=== PATIENT | female | born 1950 | race African-American/Black ===

== ENCOUNTER → 2017-05-20 | Outpatient (CLI) | payer MEDICARE, MEDICAID ==
[~2017-05-20] MED LIST: LEVOTHYROXINE
== END | disposition home or self-care (01) ==
LOC: MAMMO 09:43
PROVIDERS: ATTEND Specialist
DX: Z12.31 Encounter for screening mammogram for malignant neoplasm of breast (principal)
CPT/HCPCS: G0202

== ENCOUNTER 2019-05-30 06:27 | Day surgery (SDC) | payer MEDICARE, MEDICAID ==
[~2019-05-30] VITALS: Ht 175.3 cm; Wt 95.7 kg
[2019-05-30] MEDS ORDERED: BACITRACIN 50,000 UNITS/VIAL ONE (06:46)
[2019-05-30] MEDS ORDERED: BUPIVACAINE HCL 0.5% (5MG/ML) 50ML ONE (06:46)
[2019-05-30] MEDS ORDERED: BUPIVACAINE HCL/EPINEPHRINE 0.5%/0.0005 30ML ONE (06:47)
[2019-05-30] MEDS ORDERED: MIDAZOLAM HCL 2 MG/2 ML VIAL ONE (07:18)
[2019-05-30] MEDS ORDERED: PROPOFOL 200MG/20ML VIAL IV ONE (07:18)
[2019-05-30] MEDS ORDERED: LIDOCAINE HCL/PF 1% 10 MG/ML 5ML VIAL ONE (07:18)
[2019-05-30] MEDS ORDERED: FENTANYL CITRATE/PF 50MCG/ML 2ML VIAL ONE (07:18)
[2019-05-30] MEDS ORDERED: ASPI-1160 PO (07:38)
[2019-05-30] MEDS ORDERED: BACITRACIN 15GM TUBE TOP ONE (08:08)
[2019-05-30 08:32] LABS: CLARITY URINE CLEAR (CLEAR); COLOR URINE YELLOW (YELLOW); KETONES URINE NEGATIVE (NEGATIVE); LEUKOCYTE ESTERASE URINE NEGATIVE (NEGATIVE); NITRITE URINE NEGATIVE (NEGATIVE); OCCULT BLOOD URINE NEGATIVE (NEGATIVE); PH URINE 5.5 (4.5-8.0); PROTEIN URINE 1+ (NEGATIVE); SPECIFIC GRAVITY URINE 1.008 (1.005-1.030); UROBILINOGEN URINE 0.2 E.U./dL (0.2-1.0)
[2019-05-30] MEDS ORDERED: SUCCINYLCHOLINE CHLORIDE 200MG/10ML IV ONE (08:35)
[2019-05-30] MEDS ORDERED: VALS80TA30 PO (09:07)
[2019-05-30] MEDS ORDERED: METO-385 PO (09:07)
[2019-05-30] MEDS ORDERED: NIFE90TA34 PO (09:07)
[2019-05-30] MEDS ORDERED: ATOR10TA69 PO (09:07)
[2019-05-30] MEDS ORDERED: HYDR100T26 PO (09:07)
[2019-05-30] MEDS ORDERED: ONDANSETRON HCL 4MG/2ML INJ IV PRN (09:30)
[2019-05-30] MEDS: KETOROLAC 30MG/ML VIAL IV PRN ×2 (09:34→09:39)
[2019-05-30 09:39] VITALS: BP 163/76
[2019-05-30] MEDS ORDERED: CEFAZOLIN SODIUM 1000MG/VIAL ONE (09:56)
== END 2019-05-30 11:50 | disposition home or self-care (01) ==
LOC: OR 06:27
PROVIDERS: ATTEND Surgery
DX: K62.89 Other specified diseases of anus and rectum (principal); C20 Malignant neoplasm of rectum; I11.9 Hypertensive heart disease without heart failure; E03.9 Hypothyroidism, unspecified; E11.65 Type 2 diabetes mellitus with hyperglycemia; E78.5 Hyperlipidemia, unspecified; Z88.5 Allergy status to narcotic agent; Z90.710 Acquired absence of both cervix and uterus; Z79.899 Other long term (current) drug therapy; Z71.3 Dietary counseling and surveillance; Z79.82 Long term (current) use of aspirin
CPT/HCPCS: 45171; 81003; 82962; 88305; 88331; J0330; J0690; J1885; J2250; J2704; J3010; J3490; J0171

== ENCOUNTER → 2019-07-07 | Day surgery (SDC) | payer MEDICARE, MEDICAID ==
[~2019-07-07] MED LIST changes: +ASPI-1160 PO; +ATOR10TA69 PO; +HYDR100T26 PO; -LEVOTHYROXINE; +LIDOCAINE HCL 1% 20ML VIAL (Pyxis) INJ ONE; +METO-385 PO; +NIFE90TA34 PO; +SODIUM BICARBONATE 4% (2.4MEQ) 5ML VIAL IV ONE; +VALS80TA30 PO
== END | disposition home or self-care (01) ==
LOC: RADANGIO 11:02
PROVIDERS: ATTEND Internal Medicine Hematology & Oncology
DX: C21.1 Malignant neoplasm of anal canal (principal); Z79.82 Long term (current) use of aspirin; Z79.899 Other long term (current) drug therapy; Z88.5 Allergy status to narcotic agent
CPT/HCPCS: 36573; 76937; C1725; J3490

== ENCOUNTER → 2020-08-07 | Outpatient (CLI) | payer MEDICARE, MEDICAID ==
[~2020-08-07] MED LIST changes: +IRBE300T42 PO; +LEVO150T8 PO; -LIDOCAINE HCL 1% 20ML VIAL (Pyxis) INJ ONE; -NIFE90TA34 PO; +NIFE90TA60 PO; +NPH,100V SQ; -SODIUM BICARBONATE 4% (2.4MEQ) 5ML VIAL IV ONE
== END | disposition home or self-care (01) ==
LOC: LAB 11:07
DX: Z01.812 Encounter for preprocedural laboratory examination (principal); Z20.828 Contact with and (suspected) exposure to other viral communicable diseases
CPT/HCPCS: 87426

== ENCOUNTER 2020-08-08 05:27 | Day surgery (SDC) | payer MEDICARE, MEDICAID ==
[~2020-08-08] VITALS: Ht 175.3 cm; Wt 105.2 kg
[~2020-08-08 05:27] MED LIST changes: -IRBE300T42 PO; -LEVO150T8 PO; -NPH,100V SQ
[2020-08-08] MEDS ORDERED: LACTATED RINGERS 1,000 ML IV SCH (06:00)
[2020-08-08] MEDS ORDERED: NPH,100V SQ (06:33)
[2020-08-08] MEDS ORDERED: IRBE300T42 PO (06:33)
[2020-08-08] MEDS ORDERED: LEVO150T8 PO (06:33)
[2020-08-08] MEDS ORDERED: BUPIVACAINE HCL 0.5% (5MG/ML) 50ML ONE (06:37)
[2020-08-08] MEDS ORDERED: LIDOCAINE HCL 1% 20ML VIAL (Pyxis) INJ ONE (06:37)
[2020-08-08] MEDS ORDERED: PROPOFOL 200MG/20ML VIAL IV ONE (08:31)
[2020-08-08] MEDS ORDERED: FENTANYL CITRATE/PF 50MCG/ML 2ML VIAL ONE (08:31)
[2020-08-08] MEDS ORDERED: GLYCOPYRROLATE 0.2 MG/ML 2ML VIAL ONE (08:31)
[2020-08-08] MEDS ORDERED: METOCLOPRAMIDE HCL 10MG/2ML VIAL ONE (08:31)
[2020-08-08] MEDS ORDERED: MIDAZOLAM HCL 2 MG/2 ML VIAL ONE (08:31)
[2020-08-08] MEDS ORDERED: SUCCINYLCHOLINE CHLORIDE 200MG/10ML IV ONE (08:31)
[2020-08-08] MEDS ORDERED: ONDANSETRON HCL 4MG/2ML INJ ONE (08:31)
[2020-08-08] MEDS ORDERED: CEFAZOLIN SODIUM 1000MG/VIAL ONE (08:37)
[2020-08-08] MEDS ORDERED: ONDANSETRON HCL 4MG/2ML INJ IV PRN (08:45)
[2020-08-08] MEDS ORDERED: MORPHINE SULFATE 2 MG/ML CPJ (NOT FOR IM USE) IV PRN (08:45)
[2020-08-08] MEDS ORDERED: MEPERIDINE HCL/PF 25MG/ML CPJ IV PRN ×2 (08:45)
[2020-08-08] MEDS ORDERED: SODIUM CHLORIDE 0.9% 1,000 ML IV ONE (08:45)
[2020-08-08] MEDS ORDERED: HYDROMORPHONE HCL/PF 2MG/ML CPJ IV PRN (08:45)
[2020-08-08] MEDS ORDERED: BACITRACIN 15GM TUBE TOP ONE (08:53)
== END 2020-08-08 11:25 | disposition home or self-care (01) ==
LOC: OR 05:27
PROVIDERS: ATTEND Surgery
DX: K62.89 Other specified diseases of anus and rectum (principal); E11.9 Type 2 diabetes mellitus without complications; I10 Essential (primary) hypertension; E66.01 Morbid (severe) obesity due to excess calories; Z68.34 Body mass index [BMI] 34.0-34.9, adult; Z88.5 Allergy status to narcotic agent; Z79.82 Long term (current) use of aspirin; Z79.4 Long term (current) use of insulin; Z79.899 Other long term (current) drug therapy; Z90.710 Acquired absence of both cervix and uterus; Z98.890 Other specified postprocedural states
CPT/HCPCS: 46922; 82962; 88304; J0330; J0690; J2250; J2405; J2704; J2765; J3010; J3490

== ENCOUNTER 2021-08-19 15:46 | Inpatient (IN) | payer MEDICARE, MEDICAID ==
[~2021-08-19] VITALS: Ht 177.8 cm; Wt 119.4 kg
[~2021-08-19 15:46] MED LIST changes: +IRBE300T42 PO; +LEVO150T8 PO; +NPH,100V SQ; -VALS80TA30 PO
[2021-08-19 17:13] LABS: BASOPHILS % 0.3 % (0.0-2.0); EOSINOPHILS % 0.9 % (0.0-5.0); HEMATOCRIT. 33.9 % (36.0-48.0); HEMOGLOBIN. 11.1 g/dL (12.0-16.0); LYMPHOCYTES % 13.1 % (20.0-50.0); MEAN CORPUSCULAR HEMOGLOBIN 27.3 pg (28.0-32.0); MEAN CORPUSCULAR VOLUME 83.3 fL (81.0-99.0); MEAN PLATELET VOLUME 9.3 fl (7.4-10.4); MONOCYTES % 11.1 % (2.0-8.0); NEUTROPHILS % 74.6 % (40.0-76.0); PLATELET 112 x1000/uL (130-400); RED BLOOD CELL COUNT 4.07 mill/uL (4.2-5.4); RED CELL DISTRIBUTION WIDTH 15.4 % (11.6-14.6)
[2021-08-19 17:16] LABS: CHLORIDE 108 mEq/L (98-107)
[2021-08-19] MEDS ORDERED: SODIUM CHLORIDE 0.9% 1,000 ML IV NR (19:45)
[2021-08-19] MEDS ORDERED: ASPIRIN 325MG TABLET PO NR (21:30)
[2021-08-20 08:45] LABS: CLARITY URINE CLOUDY (CLEAR); COLOR URINE YELLOW (YELLOW); KETONES URINE NEGATIVE (NEGATIVE); LEUKOCYTE ESTERASE URINE NEGATIVE (NEGATIVE); NITRITE URINE NEGATIVE (NEGATIVE); OCCULT BLOOD URINE TRACE (NEGATIVE); PROTEIN URINE 4+ (NEGATIVE); UROBILINOGEN URINE 0.2 E.U./dL (0.2-1.0)
[2021-08-20] MEDS ORDERED: HYDROMORPHONE HCL/PF 2MG/ML CPJ IV PRN (09:30)
[2021-08-20] MEDS ORDERED: DEXTROSE 50% WATER 50ML SYRINGE IV PRN (09:30)
[2021-08-20] MEDS ORDERED: MAGNESIUM/ALUMINUM HYDROXIDE/SIMETHICONE 30ML UDC PO PRN (09:30)
[2021-08-20] MEDS ORDERED: PANTOPRAZOLE 40MG DR TABLET PO ONE (09:30)
[2021-08-20] MEDS: LACTOBACILLUS GG CAPSULE PO SCH (09:30)
[2021-08-20] MEDS ORDERED: IPRATROPIUM/ALBUTEROL 0.5-3(2.5)MG/3ML NEB HHN PRN (09:30)
[2021-08-20] MEDS: SODIUM CHLORIDE 0.45% 1,000 ML IV SCH ×2 (09:30→18:09)
[2021-08-20] MEDS ORDERED: ENOXAPARIN 40MG/0.4ML SYR SUBCUT SCH (10:30)
[2021-08-20] MEDS ORDERED: CEFTRIAXONE 1,000 MG in DEXTROSE 5% WATER 50 ML IV SCH (10:30)
[2021-08-20 10:59] LABS: BG BASE EXCESS -7.7 mmol/L (-2.0-2.0); BG CARBOXYHEMOGLOBIN 0.3 % (0.5-1.5); BG DEOXYHEMOGLOBIN 5.9 % (0.0-5.0); BG FRACTION INSPIRED OXYGEN 21; BG HCO3 ACT 16.7 mmol/L (22.0-26.0); BG METHEMOGLOBIN 0.3 % (0.0-1.5); BG OXYGEN SATURATION 94.1 % (92.0-98.5); BG OXYHEMOGLOBIN 93.5 % (94.0-97.0); BG PCO2 30.4 mmHg (35.0-45.0); BG PH 7.358 (7.350-7.450); BG PO2 75.5 mmHg (75.0-100.0); BG SAMPLE SITE RIGHT RADIAL; BG VENT MODE ROOM AIR
[2021-08-20] MEDS: BLOOD SUGAR DIAGNOSTIC STRIP TEST SCH ×3 (11:30→21:53)
[2021-08-20] MEDS: INSULIN LISPRO 100 UNITS/ML SUBCUT SCH ×3 (12:00→22:17)
[2021-08-20] MEDS: ONDANSETRON HCL 4MG/2ML INJ IV PRN (14:46)
[2021-08-20 15:10] VITALS: BP 159/82
[2021-08-20 20:00] VITALS: BP 145/74
[2021-08-20] MEDS ORDERED: ZOLPIDEM TARTRATE 5MG TABLET PO PRN (21:00)
[2021-08-21] VITALS: BP 147/80
[2021-08-21] MEDS: ACETAMINOPHEN 325MG TABLET PO PRN (00:44)
[2021-08-21] MEDS: SODIUM CHLORIDE 0.45% 1,000 ML IV SCH ×2 (00:46→08:44)
[2021-08-21 04:00] VITALS: BP 147/62
[2021-08-21] MEDS: PANTOPRAZOLE 40MG DR TABLET PO SCH (06:37)
[2021-08-21] MEDS: BLOOD SUGAR DIAGNOSTIC STRIP TEST SCH ×4 (06:41→20:55)
[2021-08-21] MEDS: INSULIN LISPRO 100 UNITS/ML SUBCUT SCH ×4 (06:42→20:55)
[2021-08-21 07:00] LABS: BASOPHILS % 0.1 % (0.0-2.0); HEMATOCRIT. 29.3 % (36.0-48.0); HEMOGLOBIN. 9.6 g/dL (12.0-16.0); LYMPHOCYTES % 17.7 % (20.0-50.0); MEAN CORPUSCULAR HEMOGLOBIN 27.5 pg (28.0-32.0); MEAN CORPUSCULAR VOLUME 83.5 fL (81.0-99.0); MEAN PLATELET VOLUME 10.5 fl (7.4-10.4); NEUTROPHILS % 71.2 % (40.0-76.0); PLATELET 94 x1000/uL (130-400); RED BLOOD CELL COUNT 3.51 mill/uL (4.2-5.4); RED CELL DISTRIBUTION WIDTH 15.1 % (11.6-14.6)
[2021-08-21 07:13] LABS: CHLORIDE 111 mEq/L (98-107)
[2021-08-21 07:19] LABS: PHOSPHORUS 4.4 mg/dL (2.5-4.9)
[2021-08-21 08:00] VITALS: BP 145/60
[2021-08-21] MEDS: LACTOBACILLUS GG CAPSULE PO SCH (08:44)
[2021-08-21] MEDS ORDERED: LEVOTHYROXINE SODIUM 75MCG TABLET PO NR (09:00)
[2021-08-21] MEDS ORDERED: METO-539 PO (09:04)
[2021-08-21] MEDS ORDERED: CEFTRIAXONE 1,000 MG in DEXTROSE 5% WATER 50 ML IV SCH (10:30)
[2021-08-21 12:00] VITALS: BP 152/75
[2021-08-21 12:18] LABS: CREATINE KINASE 257 IU/L (26-192)
[2021-08-21] MEDS: ONDANSETRON HCL 4MG/2ML INJ IV PRN ×2 (12:29→18:03)
[2021-08-21] MEDS: MEROPENEM 500 MG in SODIUM CHLORIDE 0.9% 50 ML IV SCH (12:33)
[2021-08-21] MEDS: METOPROLOL TARTRATE 50MG TABLET PO SCH ×2 (12:33→16:00)
[2021-08-21] MEDS: METRONIDAZOLE 500MG TABLET PO SCH ×2 (12:34→20:57)
[2021-08-21 13:10] LABS: CARCINO EMBRYONIC ANTIGEN 0.7 ng/ml
[2021-08-21 13:21] LABS: HEPATITIS B SURFACE ANTIGEN NEGATIVE
[2021-08-21] MEDS: SODIUM BICARBONATE 100 MEQ in SODIUM CHLORIDE 0.45% 1,000 ML IV SCH ×2 (13:45→20:57)
[2021-08-21 16:00] VITALS: BP 155/70
[2021-08-21] MEDS ORDERED: DILTIAZEM HCL 5MG/ML 5ML VIAL IV NR (17:15)
[2021-08-21] MEDS ORDERED: NALOXONE HCL 0.4MG/ML VIAL IV PRN (17:30)
[2021-08-21 20:00] VITALS: BP 136/58
[2021-08-21] MEDS: ATORVASTATIN CALCIUM 10MG TABLET PO SCH (20:57)
[2021-08-21] MEDS ORDERED: DILTIAZEM HCL 5MG/ML 5ML VIAL IV PRN (22:00)
[2021-08-22] VITALS: BP 146/62
[2021-08-22] MEDS: ONDANSETRON HCL 4MG/2ML INJ IV PRN ×2 (02:27→18:20)
[2021-08-22 04:00] VITALS: BP 142/50
[2021-08-22] MEDS: SODIUM BICARBONATE 100 MEQ in SODIUM CHLORIDE 0.45% 1,000 ML IV SCH ×3 (05:33→22:09)
[2021-08-22] MEDS: BLOOD SUGAR DIAGNOSTIC STRIP TEST SCH ×4 (07:05→20:53)
[2021-08-22] MEDS: LEVOTHYROXINE SODIUM 75MCG TABLET PO SCH (07:05)
[2021-08-22] MEDS: INSULIN LISPRO 100 UNITS/ML SUBCUT SCH ×4 (07:05→20:53)
[2021-08-22] MEDS: PANTOPRAZOLE 40MG DR TABLET PO SCH (07:05)
[2021-08-22 08:00] VITALS: BP 143/68
[2021-08-22 11:45] LABS: BASOPHILS % 0.3 % (0.0-2.0); EOSINOPHILS % 0.6 % (0.0-5.0); HEMOGLOBIN. 10.2 g/dL (12.0-16.0); LYMPHOCYTES % 19.1 % (20.0-50.0); MEAN CORPUSCULAR HEMOGLOBIN 27.3 pg (28.0-32.0); MEAN CORPUSCULAR VOLUME 83.1 fL (81.0-99.0); MEAN PLATELET VOLUME 9.8 fl (7.4-10.4); MONOCYTES % 8.6 % (2.0-8.0); NEUTROPHILS % 71.4 % (40.0-76.0); PLATELET 107 x1000/uL (130-400); RED BLOOD CELL COUNT 3.74 mill/uL (4.2-5.4); RED CELL DISTRIBUTION WIDTH 15.2 % (11.6-14.6)
[2021-08-22 11:54] LABS: PARTIAL THROMBOPLASTIN TIME 31.9 sec (23.4-31.0)
[2021-08-22 12:00] VITALS: BP 159/63
[2021-08-22] MEDS: MEROPENEM 500 MG in SODIUM CHLORIDE 0.9% 50 ML IV SCH (12:22)
[2021-08-22] MEDS: LACTOBACILLUS GG CAPSULE PO SCH (12:22)
[2021-08-22] MEDS: METRONIDAZOLE 500MG TABLET PO SCH ×2 (12:22→20:51)
[2021-08-22] MEDS: AMLODIPINE 2.5MG TABLET PO SCH (12:36)
[2021-08-22 13:58] LABS: PLT FUNCT COLLAGEN/EPINEPHRINE > 259 CT(SEC) (76-176)
[2021-08-22 13:59] LABS: PTLFUNC COLLAGEN/ADP > 286 CT(SEC) (60-115)
[2021-08-22] MEDS ORDERED: VANCOMYCIN 1500MG in DEXTROSE 5% WATER 250ML IV NR (14:00)
[2021-08-22 16:00] VITALS: BP 144/70
[2021-08-22 20:00] VITALS: BP 163/71
[2021-08-22] MEDS: ACETAMINOPHEN 325MG TABLET PO PRN (20:15)
[2021-08-22] MEDS: ATORVASTATIN CALCIUM 10MG TABLET PO SCH (20:51)
[2021-08-22] MEDS: METOPROLOL TARTRATE 25MG TABLET PO SCH (20:52)
[2021-08-23] VITALS: BP 153/74
[2021-08-23] MEDS: ONDANSETRON HCL 4MG/2ML INJ IV PRN (03:39)
[2021-08-23 04:00] VITALS: BP 115/67
[2021-08-23 05:52] LABS: HEMATOCRIT. 29.4 % (36.0-48.0); HEMOGLOBIN. 9.8 g/dL (12.0-16.0); MEAN CORPUSCULAR HEMOGLOBIN 27.8 pg (28.0-32.0); MEAN CORPUSCULAR VOLUME 83.6 fL (81.0-99.0); MEAN PLATELET VOLUME 10.4 fl (7.4-10.4); PLATELET 102 x1000/uL (130-400); RED BLOOD CELL COUNT 3.51 mill/uL (4.2-5.4); RED CELL DISTRIBUTION WIDTH 15.6 % (11.6-14.6)
[2021-08-23] MEDS: LEVOTHYROXINE SODIUM 75MCG TABLET PO SCH (05:59)
[2021-08-23] MEDS: PANTOPRAZOLE 40MG DR TABLET PO SCH (05:59)
[2021-08-23] MEDS: SODIUM BICARBONATE 100 MEQ in SODIUM CHLORIDE 0.45% 1,000 ML IV SCH ×3 (06:02→21:23)
[2021-08-23] MEDS: BLOOD SUGAR DIAGNOSTIC STRIP TEST SCH ×4 (06:02→21:21)
[2021-08-23] MEDS: INSULIN LISPRO 100 UNITS/ML SUBCUT SCH ×4 (06:02→21:00)
[2021-08-23 06:08] LABS: PHOSPHORUS 4.6 mg/dL (2.5-4.9)
[2021-08-23 08:00] VITALS: BP 152/76
[2021-08-23] MEDS: METOPROLOL TARTRATE 25MG TABLET PO SCH ×3 (08:06→21:00)
[2021-08-23] MEDS: METRONIDAZOLE 500MG TABLET PO SCH ×2 (09:05→21:17)
[2021-08-23] MEDS: AMLODIPINE 2.5MG TABLET PO SCH (09:05)
[2021-08-23] MEDS: LACTOBACILLUS GG CAPSULE PO SCH (09:05)
[2021-08-23 09:07] LABS: ANTI-NUCLEAR ANTIBODIES DIRECT Negative (Negative)
[2021-08-23] MEDS ORDERED: SODIUM CHLORIDE 0.45% 1,000 ML IV SCH (09:30)
[2021-08-23] MEDS: MEROPENEM 500 MG in SODIUM CHLORIDE 0.9% 50 ML IV SCH (10:32)
[2021-08-23] MEDS ORDERED: VANCOMYCIN 500 MG PREMIX 100 ML IV SCH (11:00)
[2021-08-23] MEDS ORDERED: SODIUM BICARBONATE 75 MEQ in SODIUM CHLORIDE 0.45% 1,000 ML IV SCH (11:30)
[2021-08-23 11:39] LABS: PLATELET ESTIMATE DECREASED
[2021-08-23] MEDS ORDERED: AMLODIPINE 2.5MG TABLET PO SCH (12:00)
[2021-08-23] MEDS: HYDRALAZINE HCL 50MG TABLET PO SCH ×2 (13:29→22:25)
[2021-08-23 16:00] VITALS: BP 167/76
[2021-08-23] MEDS ORDERED: CLONIDINE 0.1MG TABLET PO PRN (16:15)
[2021-08-23 20:00] VITALS: BP 157/67
[2021-08-23] MEDS: ATORVASTATIN CALCIUM 10MG TABLET PO SCH (21:18)
[2021-08-23] MEDS: AMLODIPINE 5MG TABLET PO SCH (21:20)
[2021-08-24] VITALS: BP 146/79
[2021-08-24 04:00] VITALS: BP 140/80
[2021-08-24] MEDS: SODIUM BICARBONATE 100 MEQ in SODIUM CHLORIDE 0.45% 1,000 ML IV SCH ×2 (05:32→13:25)
[2021-08-24] MEDS: LEVOTHYROXINE SODIUM 75MCG TABLET PO SCH (05:48)
[2021-08-24] MEDS: PANTOPRAZOLE 40MG DR TABLET PO SCH (05:48)
[2021-08-24] MEDS: ONDANSETRON HCL 4MG/2ML INJ IV PRN ×2 (05:48→19:49)
[2021-08-24] MEDS: HYDRALAZINE HCL 50MG TABLET PO SCH ×3 (05:48→21:18)
[2021-08-24] MEDS: BLOOD SUGAR DIAGNOSTIC STRIP TEST SCH ×4 (06:10→20:57)
[2021-08-24] MEDS: INSULIN LISPRO 100 UNITS/ML SUBCUT SCH ×4 (06:15→21:29)
[2021-08-24 06:53] LABS: BASOPHILS % 0.3 % (0.0-2.0); HEMATOCRIT. 28.3 % (36.0-48.0); HEMOGLOBIN. 9.6 g/dL (12.0-16.0); LYMPHOCYTES % 16.4 % (20.0-50.0); MEAN CORPUSCULAR HEMOGLOBIN 27.9 pg (28.0-32.0); MEAN CORPUSCULAR VOLUME 82.2 fL (81.0-99.0); MEAN PLATELET VOLUME 9.5 fl (7.4-10.4); MONOCYTES % 8.7 % (2.0-8.0); NEUTROPHILS % 71.6 % (40.0-76.0); PLATELET 115 x1000/uL (130-400); RED BLOOD CELL COUNT 3.44 mill/uL (4.2-5.4); RED CELL DISTRIBUTION WIDTH 15.3 % (11.6-14.6)
[2021-08-24 08:00] VITALS: BP 136/85
[2021-08-24] MEDS: LACTOBACILLUS GG CAPSULE PO SCH (09:34)
[2021-08-24] MEDS: METRONIDAZOLE 500MG TABLET PO SCH ×2 (09:34→20:51)
[2021-08-24] MEDS: AMLODIPINE 5MG TABLET PO SCH ×2 (09:35→20:52)
[2021-08-24] MEDS: METOPROLOL TARTRATE 25MG TABLET PO SCH ×2 (09:35→20:50)
[2021-08-24 12:00] VITALS: BP 123/60
[2021-08-24] MEDS: MEROPENEM 500 MG in SODIUM CHLORIDE 0.9% 50 ML IV SCH (12:24)
[2021-08-24 16:00] VITALS: BP 127/59
[2021-08-24 20:00] VITALS: BP 139/56
[2021-08-24] MEDS: ATORVASTATIN CALCIUM 10MG TABLET PO SCH (20:51)
[2021-08-25] VITALS: BP 141/66
[2021-08-25] MEDS: SODIUM BICARBONATE 100 MEQ in SODIUM CHLORIDE 0.45% 1,000 ML IV SCH ×2 (02:00→08:44)
[2021-08-25 04:00] VITALS: BP 132/69
[2021-08-25] MEDS: HYDRALAZINE HCL 50MG TABLET PO SCH ×2 (05:35→14:31)
[2021-08-25] MEDS: LEVOTHYROXINE SODIUM 75MCG TABLET PO SCH (05:35)
[2021-08-25] MEDS: PANTOPRAZOLE 40MG DR TABLET PO SCH (05:35)
[2021-08-25 06:09] LABS: A/G RATIO 0.7 (0.7-1.7); ALBUMIN 2.6 g/dL (2.9-4.4); ALPHA-1-GLOBULIN 0.4 g/dL (0.0-0.4); BETA GLOBULIN 0.9 g/dL (0.7-1.3); GAMMA GLOBULINS 1.4 g/dL (0.4-1.8); GLOBULIN TOTAL 3.7 g/dL (2.2-3.9); M-SPIKE Not Observed g/dL (Not Observed); TOTAL PROTEIN SERUM 6.3 g/dL (6.0-8.5)
[2021-08-25] MEDS: BLOOD SUGAR DIAGNOSTIC STRIP TEST SCH ×4 (06:15→21:00)
[2021-08-25] MEDS: INSULIN LISPRO 100 UNITS/ML SUBCUT SCH ×4 (06:18→21:00)
[2021-08-25] MEDS: ONDANSETRON HCL 4MG/2ML INJ IV PRN ×3 (06:57→19:14)
[2021-08-25 07:03] LABS: BASOPHILS % 0.1 % (0.0-2.0); EOSINOPHILS % 1.3 % (0.0-5.0); HEMATOCRIT. 29.7 % (36.0-48.0); HEMOGLOBIN. 9.6 g/dL (12.0-16.0); LYMPHOCYTES % 11.8 % (20.0-50.0); MEAN CORPUSCULAR HEMOGLOBIN 26.6 pg (28.0-32.0); MEAN CORPUSCULAR VOLUME 82.2 fL (81.0-99.0); MEAN PLATELET VOLUME 9.3 fl (7.4-10.4); MONOCYTES % 8.8 % (2.0-8.0); PLATELET 145 x1000/uL (130-400); RED BLOOD CELL COUNT 3.61 mill/uL (4.2-5.4); RED CELL DISTRIBUTION WIDTH 15.3 % (11.6-14.6)
[2021-08-25] MEDS: AMLODIPINE 5MG TABLET PO SCH ×2 (08:45→22:42)
[2021-08-25] MEDS: METOPROLOL TARTRATE 25MG TABLET PO SCH ×2 (08:45→22:42)
[2021-08-25] MEDS: LACTOBACILLUS GG CAPSULE PO SCH (08:46)
[2021-08-25] MEDS: METRONIDAZOLE 500MG TABLET PO SCH ×2 (08:46→22:41)
[2021-08-25] MEDS: METOCLOPRAMIDE HCL 10MG/2ML VIAL IV SCH ×3 (08:47→22:44)
[2021-08-25 09:00] VITALS: BP 129/82
[2021-08-25 09:31] LABS: AMYLASE 50 IU/L (25-115)
[2021-08-25 10:49] LABS: PROTHROMBIN TIME 10.8 sec (9.6-11.0)
[2021-08-25] MEDS ORDERED: HEPARIN 1000 UNITS/ML 10ML ONE (11:01)
[2021-08-25] MEDS ORDERED: LIDOCAINE HCL 1% 20ML VIAL (Pyxis) INJ ONE (11:01)
[2021-08-25 12:00] VITALS: BP 117/74
[2021-08-25] MEDS: MEROPENEM 500 MG in SODIUM CHLORIDE 0.9% 50 ML IV SCH (12:08)
[2021-08-25 12:46] LABS: HEPATITIS B SURFACE ANTIGEN NEGATIVE
[2021-08-25 16:00] VITALS: BP 122/82
[2021-08-25 20:00] VITALS: BP 177/80
[2021-08-25] MEDS ORDERED: VANCOMYCIN 500 MG PREMIX 100 ML IV NR (20:00)
[2021-08-25] MEDS: ATORVASTATIN CALCIUM 10MG TABLET PO SCH (22:41)
[2021-08-26] VITALS: BP 142/61
[2021-08-26] MEDS: HYDRALAZINE HCL 50MG TABLET PO SCH ×4 (00:01→22:19)
[2021-08-26] MEDS: ACETAMINOPHEN 325MG TABLET PO PRN (00:01)
[2021-08-26 04:00] VITALS: BP 148/74
[2021-08-26 04:07] LABS: HLA CLASS 1 ANTIBODY Positive (Negative); IIb/IIIa ANTIBODY Positive (Negative); Ib/IX ANTIBODY Positive (Negative)
[2021-08-26] MEDS: PANTOPRAZOLE 40MG DR TABLET PO SCH (05:53)
[2021-08-26] MEDS: METOCLOPRAMIDE HCL 10MG/2ML VIAL IV SCH ×3 (05:53→22:20)
[2021-08-26] MEDS: LEVOTHYROXINE SODIUM 75MCG TABLET PO SCH (05:53)
[2021-08-26 06:28] LABS: BASOPHILS % 0.2 % (0.0-2.0); EOSINOPHILS % 1.2 % (0.0-5.0); HEMATOCRIT. 29.7 % (36.0-48.0); HEMOGLOBIN. 9.7 g/dL (12.0-16.0); LYMPHOCYTES % 10.2 % (20.0-50.0); MEAN CORPUSCULAR VOLUME 82.6 fL (81.0-99.0); MEAN PLATELET VOLUME 9.2 fl (7.4-10.4); MONOCYTES % 9.6 % (2.0-8.0); NEUTROPHILS % 78.8 % (40.0-76.0); PLATELET 157 x1000/uL (130-400); RED BLOOD CELL COUNT 3.59 mill/uL (4.2-5.4); RED CELL DISTRIBUTION WIDTH 15.3 % (11.6-14.6)
[2021-08-26] MEDS: INSULIN LISPRO 100 UNITS/ML SUBCUT SCH ×4 (06:44→21:00)
[2021-08-26] MEDS: BLOOD SUGAR DIAGNOSTIC STRIP TEST SCH ×4 (06:44→21:00)
[2021-08-26 08:00] VITALS: BP 160/80
[2021-08-26] MEDS: METOPROLOL TARTRATE 25MG TABLET PO SCH ×2 (09:00→22:20)
[2021-08-26] MEDS: LACTOBACILLUS GG CAPSULE PO SCH (10:08)
[2021-08-26] MEDS: METRONIDAZOLE 500MG TABLET PO SCH (10:08)
[2021-08-26] MEDS: AMLODIPINE 5MG TABLET PO SCH ×2 (10:09→22:20)
[2021-08-26] MEDS: MEROPENEM 500 MG in SODIUM CHLORIDE 0.9% 50 ML IV SCH (10:10)
[2021-08-26 12:00] VITALS: BP 140/74
[2021-08-26 16:00] VITALS: BP 129/81
[2021-08-26 20:00] VITALS: BP 167/93
[2021-08-26] MEDS: ATORVASTATIN CALCIUM 10MG TABLET PO SCH (22:20)
[2021-08-27] VITALS: BP 130/55
[2021-08-27] MEDS: ONDANSETRON HCL 4MG/2ML INJ IV PRN (02:21)
[2021-08-27 04:00] VITALS: BP 140/72
[2021-08-27] MEDS: HYDRALAZINE HCL 50MG TABLET PO SCH ×3 (06:26→21:00)
[2021-08-27] MEDS: METOCLOPRAMIDE HCL 10MG/2ML VIAL IV SCH ×4 (06:26→21:01)
[2021-08-27 06:28] LABS: BASOPHILS % 0.4 % (0.0-2.0); EOSINOPHILS % 0.9 % (0.0-5.0); HEMATOCRIT. 31.2 % (36.0-48.0); HEMOGLOBIN. 10.2 g/dL (12.0-16.0); LYMPHOCYTES % 12.1 % (20.0-50.0); MEAN CORPUSCULAR HEMOGLOBIN 26.9 pg (28.0-32.0); MONOCYTES % 8.7 % (2.0-8.0); NEUTROPHILS % 77.9 % (40.0-76.0); PLATELET 179 x1000/uL (130-400); RED BLOOD CELL COUNT 3.81 mill/uL (4.2-5.4); RED CELL DISTRIBUTION WIDTH 15.5 % (11.6-14.6)
[2021-08-27] MEDS: BLOOD SUGAR DIAGNOSTIC STRIP TEST SCH ×4 (07:09→21:01)
[2021-08-27] MEDS: PANTOPRAZOLE 40MG DR TABLET PO SCH (07:51)
[2021-08-27] MEDS: LEVOTHYROXINE SODIUM 75MCG TABLET PO SCH (07:51)
[2021-08-27] MEDS: INSULIN LISPRO 100 UNITS/ML SUBCUT SCH ×4 (07:52→21:00)
[2021-08-27 08:00] VITALS: BP 155/84
[2021-08-27] MEDS: AMLODIPINE 5MG TABLET PO SCH ×2 (09:16→21:00)
[2021-08-27] MEDS: METOPROLOL TARTRATE 25MG TABLET PO SCH ×2 (09:16→21:00)
[2021-08-27 12:00] VITALS: BP 154/73
[2021-08-27] MEDS: LACTOBACILLUS GG CAPSULE PO SCH (12:42)
[2021-08-27 16:00] VITALS: BP 161/84
[2021-08-27 20:00] VITALS: BP 142/69
[2021-08-27] MEDS ORDERED: VANCOMYCIN 750 MG PREMIX 150 ML IV NR (20:00)
[2021-08-27] MEDS: ATORVASTATIN CALCIUM 10MG TABLET PO SCH (20:59)
[2021-08-28] VITALS: BP 143/70
[2021-08-28] MEDS: ACETAMINOPHEN 325MG TABLET PO PRN (01:13)
[2021-08-28 04:00] VITALS: BP 151/75
[2021-08-28] MEDS: HYDRALAZINE HCL 50MG TABLET PO SCH ×3 (05:25→21:00)
[2021-08-28] MEDS: METOCLOPRAMIDE HCL 10MG/2ML VIAL IV SCH ×3 (05:25→21:00)
[2021-08-28] MEDS: BLOOD SUGAR DIAGNOSTIC STRIP TEST SCH ×4 (06:55→20:58)
[2021-08-28] MEDS: PANTOPRAZOLE 40MG DR TABLET PO SCH (07:40)
[2021-08-28] MEDS: INSULIN LISPRO 100 UNITS/ML SUBCUT SCH ×4 (07:41→20:59)
[2021-08-28] MEDS: LEVOTHYROXINE SODIUM 75MCG TABLET PO SCH (08:52)
[2021-08-28] MEDS: AMLODIPINE 5MG TABLET PO SCH ×2 (09:00→20:58)
[2021-08-28] MEDS: METOPROLOL TARTRATE 25MG TABLET PO SCH ×2 (09:00→20:58)
[2021-08-28] MEDS: ONDANSETRON HCL 4MG/2ML INJ IV PRN (09:23)
[2021-08-28] MEDS: LACTOBACILLUS GG CAPSULE PO SCH (09:23)
[2021-08-28 12:00] VITALS: BP 128/90
[2021-08-28 13:26] LABS: HEMATOCRIT. 32.1 % (36.0-48.0); HEMOGLOBIN. 10.1 g/dL (12.0-16.0); MEAN CORPUSCULAR HEMOGLOBIN 26.2 pg (28.0-32.0); MEAN CORPUSCULAR VOLUME 83.2 fL (81.0-99.0); MEAN PLATELET VOLUME 8.8 fl (7.4-10.4); PLATELET 198 x1000/uL (130-400); RED BLOOD CELL COUNT 3.86 mill/uL (4.2-5.4); RED CELL DISTRIBUTION WIDTH 15.4 % (11.6-14.6)
[2021-08-28 14:21] LABS: PLATELET ESTIMATE NORMAL
[2021-08-28 16:00] VITALS: BP 151/79
[2021-08-28 20:00] VITALS: BP 149/78
[2021-08-28] MEDS: ATORVASTATIN CALCIUM 10MG TABLET PO SCH (20:58)
[2021-08-29] VITALS: BP 137/88
[2021-08-29 04:00] VITALS: BP 155/79
[2021-08-29] MEDS: HYDRALAZINE HCL 50MG TABLET PO SCH ×3 (06:04→21:33)
[2021-08-29] MEDS: METOCLOPRAMIDE HCL 10MG/2ML VIAL IV SCH ×3 (06:04→21:32)
[2021-08-29] MEDS: BLOOD SUGAR DIAGNOSTIC STRIP TEST SCH ×4 (07:25→21:32)
[2021-08-29] MEDS: INSULIN LISPRO 100 UNITS/ML SUBCUT SCH ×4 (07:26→21:31)
[2021-08-29] MEDS: PANTOPRAZOLE 40MG DR TABLET PO SCH (07:50)
[2021-08-29] MEDS: LEVOTHYROXINE SODIUM 75MCG TABLET PO SCH (07:50)
[2021-08-29 08:00] VITALS: BP 139/73
[2021-08-29] MEDS: AMLODIPINE 5MG TABLET PO SCH ×2 (09:11→21:32)
[2021-08-29] MEDS: LACTOBACILLUS GG CAPSULE PO SCH (09:11)
[2021-08-29] MEDS: METOPROLOL TARTRATE 25MG TABLET PO SCH ×2 (09:12→21:32)
[2021-08-29 09:33] LABS: HEMATOCRIT. 32.5 % (36.0-48.0); HEMOGLOBIN. 10.4 g/dL (12.0-16.0); MEAN CORPUSCULAR HEMOGLOBIN 26.6 pg (28.0-32.0); MEAN CORPUSCULAR VOLUME 82.9 fL (81.0-99.0); MEAN PLATELET VOLUME 8.4 fl (7.4-10.4); PLATELET 178 x1000/uL (130-400); RED BLOOD CELL COUNT 3.91 mill/uL (4.2-5.4); RED CELL DISTRIBUTION WIDTH 15.4 % (11.6-14.6)
[2021-08-29] MEDS: FOLIC ACID/VITAMIN B COMP W-C TABLET PO SCH (10:28)
[2021-08-29 12:00] VITALS: BP 126/72
[2021-08-29 16:00] VITALS: BP 139/73
[2021-08-29 20:00] VITALS: BP 128/63
[2021-08-29] MEDS: ATORVASTATIN CALCIUM 10MG TABLET PO SCH (21:34)
[2021-08-30] VITALS: BP 125/75
[2021-08-30 04:00] VITALS: BP 144/54
[2021-08-30] MEDS: METOCLOPRAMIDE HCL 10MG/2ML VIAL IV SCH ×3 (06:27→21:24)
[2021-08-30] MEDS: HYDRALAZINE HCL 50MG TABLET PO SCH ×3 (06:27→21:26)
[2021-08-30 08:00] VITALS: BP 127/74
[2021-08-30 08:10] LABS: PLATELET ESTIMATE NORMAL
[2021-08-30] MEDS: LEVOTHYROXINE SODIUM 75MCG TABLET PO SCH (08:14)
[2021-08-30] MEDS: INSULIN LISPRO 100 UNITS/ML SUBCUT SCH ×4 (08:17→21:25)
[2021-08-30] MEDS: BLOOD SUGAR DIAGNOSTIC STRIP TEST SCH ×4 (08:17→21:26)
[2021-08-30 08:38] LABS: BASOPHILS % 1.2 % (0.0-2.0); HEMATOCRIT. 28.8 % (36.0-48.0); HEMOGLOBIN. 9.4 g/dL (12.0-16.0); LYMPHOCYTES % 14.7 % (20.0-50.0); MEAN CORPUSCULAR HEMOGLOBIN 27.2 pg (28.0-32.0); MEAN PLATELET VOLUME 8.2 fl (7.4-10.4); MONOCYTES % 11.3 % (2.0-8.0); NEUTROPHILS % 70.8 % (40.0-76.0); PLATELET 174 x1000/uL (130-400); RED BLOOD CELL COUNT 3.47 mill/uL (4.2-5.4); RED CELL DISTRIBUTION WIDTH 15.2 % (11.6-14.6)
[2021-08-30] MEDS: METOPROLOL TARTRATE 25MG TABLET PO SCH ×2 (10:09→21:00)
[2021-08-30] MEDS: AMLODIPINE 5MG TABLET PO SCH ×2 (10:09→21:00)
[2021-08-30] MEDS: FOLIC ACID/VITAMIN B COMP W-C TABLET PO SCH (10:09)
[2021-08-30] MEDS: LACTOBACILLUS GG CAPSULE PO SCH (10:09)
[2021-08-30] MEDS: PANTOPRAZOLE 40MG DR TABLET PO SCH (10:34)
[2021-08-30 12:00] VITALS: BP 144/67
[2021-08-30 16:00] VITALS: BP 138/72
[2021-08-30 20:00] VITALS: BP 143/72
[2021-08-30] MEDS: ATORVASTATIN CALCIUM 10MG TABLET PO SCH (21:24)
[2021-08-31] VITALS: BP 141/83
[2021-08-31 04:00] VITALS: BP 124/74
[2021-08-31] MEDS: HYDRALAZINE HCL 50MG TABLET PO SCH ×3 (04:51→20:51)
[2021-08-31] MEDS: METOCLOPRAMIDE HCL 10MG/2ML VIAL IV SCH ×3 (04:51→20:55)
[2021-08-31] MEDS: PANTOPRAZOLE 40MG DR TABLET PO SCH (07:40)
[2021-08-31] MEDS: BLOOD SUGAR DIAGNOSTIC STRIP TEST SCH ×4 (07:40→20:51)
[2021-08-31 08:00] VITALS: BP 137/70
[2021-08-31] MEDS: INSULIN LISPRO 100 UNITS/ML SUBCUT SCH ×4 (08:10→20:58)
[2021-08-31] MEDS: LACTOBACILLUS GG CAPSULE PO SCH (08:51)
[2021-08-31] MEDS: AMLODIPINE 5MG TABLET PO SCH ×2 (08:51→20:50)
[2021-08-31] MEDS: FOLIC ACID/VITAMIN B COMP W-C TABLET PO SCH (08:51)
[2021-08-31] MEDS: METOPROLOL TARTRATE 25MG TABLET PO SCH ×2 (08:52→20:50)
[2021-08-31] MEDS: LEVOTHYROXINE SODIUM 75MCG TABLET PO SCH (08:52)
[2021-08-31 12:00] VITALS: BP 136/79
[2021-08-31 12:40] LABS: BASOPHILS % 1.1 % (0.0-2.0); HEMATOCRIT. 29.9 % (36.0-48.0); HEMOGLOBIN. 9.7 g/dL (12.0-16.0); LYMPHOCYTES % 19.7 % (20.0-50.0); MEAN CORPUSCULAR HEMOGLOBIN 26.6 pg (28.0-32.0); MEAN CORPUSCULAR VOLUME 82.1 fL (81.0-99.0); MEAN PLATELET VOLUME 8.5 fl (7.4-10.4); MONOCYTES % 11.5 % (2.0-8.0); NEUTROPHILS % 66.7 % (40.0-76.0); PLATELET 202 x1000/uL (130-400); RED BLOOD CELL COUNT 3.65 mill/uL (4.2-5.4); RED CELL DISTRIBUTION WIDTH 15.2 % (11.6-14.6)
[2021-08-31 16:00] VITALS: BP 138/72
[2021-08-31 20:00] VITALS: BP 125/82
[2021-08-31] MEDS: ATORVASTATIN CALCIUM 10MG TABLET PO SCH (20:50)
[2021-09-01] VITALS: BP 135/73
[2021-09-01 04:00] VITALS: BP 142/86
[2021-09-01] MEDS: PANTOPRAZOLE 40MG DR TABLET PO SCH (05:38)
[2021-09-01] MEDS: BLOOD SUGAR DIAGNOSTIC STRIP TEST SCH ×4 (05:38→20:55)
[2021-09-01] MEDS: LEVOTHYROXINE SODIUM 75MCG TABLET PO SCH (05:38)
[2021-09-01] MEDS: HYDRALAZINE HCL 50MG TABLET PO SCH ×3 (05:38→20:53)
[2021-09-01] MEDS: INSULIN LISPRO 100 UNITS/ML SUBCUT SCH ×4 (05:45→20:55)
[2021-09-01] MEDS: METOCLOPRAMIDE HCL 10MG/2ML VIAL IV SCH ×3 (05:58→20:52)
[2021-09-01 07:57] LABS: EOSINOPHILS % 1.3 % (0.0-5.0); HEMATOCRIT. 27.9 % (36.0-48.0); HEMOGLOBIN. 9.3 g/dL (12.0-16.0); LYMPHOCYTES % 17.4 % (20.0-50.0); MEAN CORPUSCULAR HEMOGLOBIN 27.4 pg (28.0-32.0); MEAN CORPUSCULAR VOLUME 82.3 fL (81.0-99.0); MEAN PLATELET VOLUME 8.3 fl (7.4-10.4); MONOCYTES % 11.7 % (2.0-8.0); NEUTROPHILS % 68.6 % (40.0-76.0); PLATELET 179 x1000/uL (130-400); RED BLOOD CELL COUNT 3.39 mill/uL (4.2-5.4); RED CELL DISTRIBUTION WIDTH 15.3 % (11.6-14.6)
[2021-09-01 08:18] VITALS: BP 112/59
[2021-09-01] MEDS: LACTOBACILLUS GG CAPSULE PO SCH (08:48)
[2021-09-01] MEDS: FOLIC ACID/VITAMIN B COMP W-C TABLET PO SCH (08:48)
[2021-09-01] MEDS: METOPROLOL TARTRATE 25MG TABLET PO SCH ×2 (08:51→20:53)
[2021-09-01] MEDS: AMLODIPINE 5MG TABLET PO SCH ×2 (08:51→20:53)
[2021-09-01 11:42] VITALS: BP 140/73
[2021-09-01 14:55] LABS: TOTAL IRON BINDING CAPACITY 137 ug/dL (250-450)
[2021-09-01 14:59] LABS: PARTIAL THROMBOPLASTIN TIME 26.5 sec (23.4-31.0); PROTHROMBIN TIME 10.6 sec (9.6-11.0)
[2021-09-01 16:06] VITALS: BP 119/59
[2021-09-01 20:00] VITALS: BP 131/83
[2021-09-01] MEDS: ATORVASTATIN CALCIUM 10MG TABLET PO SCH (20:53)
[2021-09-02] VITALS (18 sets, daily range): BP systolic 106–144; BP diastolic 56–87
[2021-09-02] MEDS: BLOOD SUGAR DIAGNOSTIC STRIP TEST SCH ×4 (05:43→21:42)
[2021-09-02] MEDS: HYDRALAZINE HCL 50MG TABLET PO SCH ×3 (05:43→21:42)
[2021-09-02] MEDS: LEVOTHYROXINE SODIUM 75MCG TABLET PO SCH (05:43)
[2021-09-02] MEDS: PANTOPRAZOLE 40MG DR TABLET PO SCH (05:43)
[2021-09-02] MEDS: METOCLOPRAMIDE HCL 10MG/2ML VIAL IV SCH ×3 (05:43→21:41)
[2021-09-02] MEDS: INSULIN LISPRO 100 UNITS/ML SUBCUT SCH ×4 (05:45→21:43)
[2021-09-02] MEDS ORDERED: CEFAZOLIN 1000MG PREMIX 50 ML IV ONE ×2 (07:15→07:33)
[2021-09-02 07:29] LABS: HEMATOCRIT. 26.7 % (36.0-48.0); MEAN CORPUSCULAR HEMOGLOBIN 27.7 pg (28.0-32.0); MEAN CORPUSCULAR VOLUME 82.5 fL (81.0-99.0); MEAN PLATELET VOLUME 9.1 fl (7.4-10.4); PLATELET 179 x1000/uL (130-400); RED BLOOD CELL COUNT 3.24 mill/uL (4.2-5.4); RED CELL DISTRIBUTION WIDTH 15.1 % (11.6-14.6)
[2021-09-02] MEDS ORDERED: HEPARIN 1000 UNITS/ML 10ML ONE (07:33)
[2021-09-02] MEDS ORDERED: FENTANYL CITRATE/PF 50MCG/ML 2ML VIAL ONE (07:40)
[2021-09-02] MEDS ORDERED: LIDOCAINE HCL 1% 20ML VIAL (Pyxis) INJ ONE (08:01)
[2021-09-02] MEDS ORDERED: FENTANYL CITRATE/PF 50MCG/ML 2ML VIAL IV ONE (08:15)
[2021-09-02] MEDS ORDERED: HYDR-4135 PO (08:53)
[2021-09-02] MEDS ORDERED: PANT40TA51 PO (08:53)
[2021-09-02] MEDS ORDERED: NEPVIT PO (08:53)
[2021-09-02] MEDS ORDERED: METO5VIA3 IV (08:53)
[2021-09-02] MEDS ORDERED: ONDA4VIA22 IV (08:53)
[2021-09-02] MEDS ORDERED: METO25TA6 PO (08:53)
[2021-09-02] MEDS ORDERED: LEVO75TA7 PO (08:53)
[2021-09-02] MEDS ORDERED: AMLO5TAB88 PO (08:53)
[2021-09-02] MEDS: AMLODIPINE 5MG TABLET PO SCH ×2 (09:00→21:41)
[2021-09-02] MEDS: LACTOBACILLUS GG CAPSULE PO SCH (09:00)
[2021-09-02] MEDS: METOPROLOL TARTRATE 25MG TABLET PO SCH ×2 (09:00→21:41)
[2021-09-02] MEDS: FOLIC ACID/VITAMIN B COMP W-C TABLET PO SCH (11:05)
[2021-09-02] MEDS: ATORVASTATIN CALCIUM 10MG TABLET PO SCH (21:42)
[2021-09-03] VITALS: BP 128/74
[2021-09-03 04:00] VITALS: BP 137/74
[2021-09-03] MEDS: METOCLOPRAMIDE HCL 10MG/2ML VIAL IV SCH ×3 (05:43→23:03)
[2021-09-03] MEDS: PANTOPRAZOLE 40MG DR TABLET PO SCH (05:43)
[2021-09-03] MEDS: LEVOTHYROXINE SODIUM 75MCG TABLET PO SCH (05:43)
[2021-09-03] MEDS: HYDRALAZINE HCL 50MG TABLET PO SCH ×3 (05:43→23:06)
[2021-09-03] MEDS: BLOOD SUGAR DIAGNOSTIC STRIP TEST SCH ×4 (05:43→21:16)
[2021-09-03] MEDS: INSULIN LISPRO 100 UNITS/ML SUBCUT SCH ×4 (05:44→21:17)
[2021-09-03 06:41] LABS: PLATELET ESTIMATE NORMAL
[2021-09-03 08:00] VITALS: BP 132/71
[2021-09-03] MEDS: LACTOBACILLUS GG CAPSULE PO SCH (09:32)
[2021-09-03] MEDS: AMLODIPINE 5MG TABLET PO SCH ×3 (09:32→21:19)
[2021-09-03] MEDS: FOLIC ACID/VITAMIN B COMP W-C TABLET PO SCH (09:32)
[2021-09-03] MEDS: METOPROLOL TARTRATE 25MG TABLET PO SCH ×2 (09:33→21:19)
[2021-09-03 12:00] VITALS: BP 155/80
[2021-09-03 16:30] VITALS: BP 120/60
[2021-09-03 17:06] LABS: OVA & PARASITE EXAM Final report (.)
[2021-09-03 20:00] VITALS: BP 127/57
[2021-09-03] MEDS: ATORVASTATIN CALCIUM 10MG TABLET PO SCH (21:19)
[2021-09-04] VITALS: BP 123/72
[2021-09-04 04:00] VITALS: BP 119/67
[2021-09-04] MEDS: BLOOD SUGAR DIAGNOSTIC STRIP TEST SCH ×2 (06:22→12:10)
[2021-09-04] MEDS: HYDRALAZINE HCL 50MG TABLET PO SCH ×2 (06:22→13:37)
[2021-09-04] MEDS: PANTOPRAZOLE 40MG DR TABLET PO SCH (06:22)
[2021-09-04] MEDS: LEVOTHYROXINE SODIUM 75MCG TABLET PO SCH (06:22)
[2021-09-04] MEDS: METOCLOPRAMIDE HCL 10MG/2ML VIAL IV SCH ×2 (06:22→13:37)
[2021-09-04] MEDS: INSULIN LISPRO 100 UNITS/ML SUBCUT SCH ×2 (07:08→12:40)
[2021-09-04 08:00] VITALS: BP 138/73
[2021-09-04] MEDS: LACTOBACILLUS GG CAPSULE PO SCH (10:09)
[2021-09-04] MEDS: FOLIC ACID/VITAMIN B COMP W-C TABLET PO SCH (10:09)
[2021-09-04] MEDS: AMLODIPINE 5MG TABLET PO SCH (10:09)
[2021-09-04] MEDS: METOPROLOL TARTRATE 25MG TABLET PO SCH (10:09)
[2021-09-04] MEDS: ACETAMINOPHEN 325MG TABLET PO PRN (10:14)
[2021-09-04 11:09] LABS: HEMATOCRIT. 28.4 % (36.0-48.0); HEMOGLOBIN. 9.2 g/dL (12.0-16.0); MEAN CORPUSCULAR HEMOGLOBIN 27.4 pg (28.0-32.0); MEAN CORPUSCULAR VOLUME 84.2 fL (81.0-99.0); RED BLOOD CELL COUNT 3.37 mill/uL (4.2-5.4); RED CELL DISTRIBUTION WIDTH 15.6 % (11.6-14.6)
[2021-09-04] MEDS ORDERED: HEPARIN SODIUM 1,000 UNIT/1ML VIAL IV NR (13:30)
[2021-09-04 14:36] VITALS: BP 133/73
[2021-09-04 16:00] VITALS: BP 133/73
[2021-09-04 23:53] LABS: PLATELET ESTIMATE DECREASED
[2021-09-04 23:54] LABS: MEAN PLATELET VOLUME 8.5 fl (7.4-10.4); PLATELET 104 x1000/uL (130-400)
== END 2021-09-04 17:00 | disposition home health service (06) | DRG 673 ==
LOC: ER 15:46 → MICUSO 23:00 → 8WST 08-20 14:31 → 7WST 08-26 23:54 → 8WST 08-31 11:18
PROVIDERS: ADMIT Internal Medicine Geriatric Medicine; ATTEND Internal Medicine Geriatric Medicine
PROC: 02HV33Z Insertion of Infusion Device into Superior Vena Cava, Percutaneous Approach (ICD-10-PCS; principal; 2021-08-25)
PROC: B518ZZA Fluoroscopy of Superior Vena Cava, Guidance (ICD-10-PCS; 2021-08-25)
PROC: 5A1D70Z Performance of Urinary Filtration, Intermittent, Less than 6 Hours Per Day (ICD-10-PCS; 2021-08-25)
PROC: 5A1D70Z Performance of Urinary Filtration, Intermittent, Less than 6 Hours Per Day (ICD-10-PCS; 2021-08-28)
PROC: 5A1D70Z Performance of Urinary Filtration, Intermittent, Less than 6 Hours Per Day (ICD-10-PCS; 2021-08-29)
PROC: 0JH63XZ Insertion of Tunneled Vascular Access Device into Chest Subcutaneous Tissue and Fascia, Percutaneous Approach (ICD-10-PCS; 2021-09-02)
PROC: 02H633Z Insertion of Infusion Device into Right Atrium, Percutaneous Approach (ICD-10-PCS; 2021-09-02)
PROC: B518ZZA Fluoroscopy of Superior Vena Cava, Guidance (ICD-10-PCS; 2021-09-02)
PROC: 02PY33Z Removal of Infusion Device from Great Vessel, Percutaneous Approach (ICD-10-PCS; 2021-09-02)
PROC: 5A1D70Z Performance of Urinary Filtration, Intermittent, Less than 6 Hours Per Day (ICD-10-PCS; 2021-09-04)
DX: N17.9 Acute kidney failure, unspecified (principal); U07.1 COVID-19; I13.2 Hypertensive heart and chronic kidney disease with heart failure and with stage 5 chronic kidney disease, or end stage renal disease; N39.0 Urinary tract infection, site not specified; R78.81 Bacteremia; I50.30 Unspecified diastolic (congestive) heart failure; N18.6 End stage renal disease; K52.9 Noninfective gastroenteritis and colitis, unspecified; E11.22 Type 2 diabetes mellitus with diabetic chronic kidney disease; D63.8 Anemia in other chronic diseases classified elsewhere; E86.9 Volume depletion, unspecified; E78.5 Hyperlipidemia, unspecified; E89.0 Postprocedural hypothyroidism; I25.10 Atherosclerotic heart disease of native coronary artery without angina pectoris; R00.1 Bradycardia, unspecified; I70.0 Atherosclerosis of aorta; I34.0 Nonrheumatic mitral (valve) insufficiency; D69.6 Thrombocytopenia, unspecified; N28.1 Cyst of kidney, acquired; B96.89 Other specified bacterial agents as the cause of diseases classified elsewhere; D72.819 Decreased white blood cell count, unspecified; E11.40 Type 2 diabetes mellitus with diabetic neuropathy, unspecified; E66.9 Obesity, unspecified; I48.0 Paroxysmal atrial fibrillation; E78.00 Pure hypercholesterolemia, unspecified; Z79.4 Long term (current) use of insulin; Z86.03 Personal history of neoplasm of uncertain behavior; Z92.21 Personal history of antineoplastic chemotherapy; Z85.048 Personal history of other malignant neoplasm of rectum, rectosigmoid junction, and anus; Z90.49 Acquired absence of other specified parts of digestive tract; Z79.899 Other long term (current) drug therapy; Z68.37 Body mass index [BMI] 37.0-37.9, adult
CPT/HCPCS: 36415; 36556; 36558; 36589; 36600; 71045; 74176; 76700; 76770; 76937; 77001; 80048; 80053; 80076; 80202; 81003; 82150; 82270; 82375; 82378; 82550; 82553; 82570; 82575; 82805; 82962; 83010; 83036; 83540; 83550; 83615; 83735; 83880; 84100; 84155; 84156; 84165; 84300; 84443; 84484; 85025; 85044; 85384; 85576; 86022; 86038; 86160; 86592; 86705; 86706; 86709; 86803; 86880; 87015; 87045; 87070; 87177; 87209; 87340; 87426; 87427; 87449; 87493; 89055; 93005; 93306; 93970; 97116; 97161; 97164; 99152; 99153; 99285; C1750; C1752; C1887; C1893; J0690; J0696; J1644; J1650; J1815; J2185; J2405; J2765; J3010; J3370; J3490; J7040; J7060; L8514; U0003; U0005; A4315; G0500

== ENCOUNTER → 2023-07-20 | Outpatient (CLI) | payer MEDICARE, MEDICAID ==
[~2023-07-20] MED LIST changes: +AMLO5TAB88 PO; +HYDR-4135 PO; +LEVO75TA7 PO; -METO-385 PO; +METO-539 PO; +METO25TA6 PO; +METO5VIA3 IV; +NEPVIT PO; +ONDA4VIA22 IV; +PANT40TA51 PO
== END | disposition home or self-care (01) ==
LOC: MAMMO 09:17
PROVIDERS: ATTEND Internal Medicine Geriatric Medicine
DX: Z12.31 Encounter for screening mammogram for malignant neoplasm of breast (principal)
CPT/HCPCS: 77063; 77067